=== PATIENT | female | born 1995 | race African-American/Black ===

== ENCOUNTER 2016-06-20 13:57 | Emergency (ER) | payer OTHER ==
[~2016-06-20] VITALS: Ht 160 cm; Wt 77.1 kg
[2016-06-20 14:10] VITALS: BP 138/84
[2016-06-20] MEDS ORDERED: Morphine Sulfate 2mg/ml Inj IVP ONE (14:30)
[2016-06-20 14:55] LABS: BASOPHILS % (AUTO) 0.9 % (0.0-2.0); EOSINOPHILS % (AUTO) 1.4 % (0.0-3.0); LYMPHOCYTES % (AUTO) 14.6 % (20.0-45.0); MEAN CORPUSCULAR HEMOGLOBIN 26.4 PG (27.0-31.0); MEAN CORPUSCULAR HGB CONC 32.7 G/DL (32.0-36.0); MEAN CORPUSCULAR VOLUME 81 FL (80-99); MEAN PLATELET VOLUME 7.7 FL (6.5-10.1); MONOCYTES % (AUTO) 8.4 % (1.0-10.0); NEUTROPHILS % (AUTO) 74.7 % (45.0-75.0); PLATELET COUNT 374 K/UL (150-450); RED BLOOD COUNT 4.79 M/UL (4.20-5.40); RED CELL DISTRIBUTION WIDTH 12.9 % (11.6-14.8); WHITE BLOOD COUNT 10.4 K/UL (4.8-10.8)
--- NOTE | 2016-06-20 14:58 | Emergency Room Report ---
History of Present Illness General Chief Complaint: Abdominal Pain Source: Patient Present Illness HPI The patient is a 20-year-old female presenting for abd pain and vomiting which began 2 weeks prior. The patient states she had a uterine mass removal 7 months prior without any complications. Pain is described as a 10/10 dull ache to the mid lower abd and RLQ. Pain does not radiate. Pain worse with touch and movement. 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 Review of Systems All Other Systems: negative except mentioned in HPI Physical Exam Vital Signs Date Time Temp Pulse Resp B/P Pulse Ox O2 Delivery O2 Flow Rate FiO2 06/20/16 14:10 98.2 96 18 138/84 100 Room Air Sp02 EP Interpretation: reviewed, normal General Appearance: no apparent distress, alert, GCS 15, non-toxic Head: normocephalic, atraumatic Eyes: bilateral eye PERRL, bilateral eye normal inspection Neck: full range of motion, supple/symm/no masses Respiratory: chest non-tender, lungs clear, normal breath sounds, speaking full sentences Cardiovascular #1: regular rate, rhythm, no edema Gastrointestinal: normal bowel sounds, soft, guarding, tenderness - suprapubic and RLQ Genitourinary: normal inspection, no CVA tenderness Musculoskeletal: back normal, gait/station normal, normal range of motion, non- tender Neurologic: alert, oriented x3, responsive, motor strength/tone normal, sensory intact, normal gait, speech normal Psychiatric: judgement/insight normal, memory normal, mood/affect normal, no suicidal/homicidal ideation Skin: normal color, no rash, warm/dry, well hydrated Lymphatic: no adenopathy Medical Decision Making PA Attestation Dr. Wick is my supervising physician. Patient management was discussed with my supervising physician Diagnostic Impression: Primary Impression: Pelvic inflammatory disease (PID) ER Course The patient is a 20-year-old female presenting for abd pain and vomiting Differential diagnoses considered include but not limited to gastroenteritis, pancreatitis, appendicitis, UTI, PID PE: vitals WNL. Afebrile. Abd: soft. Normal BS. There is TTP over suprapubic region and RLQ. + guarding. There is a surgical scar noted periumbilically CT abd/pelvis as well as pelvic US shows free pelvic fluid and R ovarian cyst. CBC unremarkable. No leukocytosis CMP unremarkable. UA: shows elevated WBCs and leukocyte esterase The patient is initially given morphine for pain which has not significantly helped. The patient is then given Toradol with good benefit. The pt is given Rocephin and azithromycin before discharge and will be AL'ed home with pain medication and keflex. ER precautions given. Laboratory Tests Test 06/20/16 14:42 06/20/16 16:07 White Blood Count 10.4 K/UL (4.8-10.8) Red Blood Count 4.79 M/UL (4.20-5.40) Hemoglobin 12.7 G/DL (12.0-16.0) Hematocrit 38.7 % (37.0-47.0) Mean Corpuscular Volume 81 FL (80-99) Mean Corpuscular Hemoglobin 26.4 PG (27.0-31.0) L Mean Corpuscular Hemoglobin Concent 32.7 G/DL (32.0-36.0) Red Cell Distribution Width 12.9 % (11.6-14.8) Platelet Count 374 K/UL (150-450) Mean Platelet Volume 7.7 FL (6.5-10.1) Neutrophils (%) (Auto) 74.7 % (45.0-75.0) Lymphocytes (%) (Auto) 14.6 % (20.0-45.0) L Monocytes (%) (Auto) 8.4 % (1.0-10.0) Eosinophils (%) (Auto) 1.4 % (0.0-3.0) Basophils (%) (Auto) 0.9 % (0.0-2.0) Sodium Level 141 mEQ/L (135-145) Potassium Level 3.2 mEQ/L (3.4-4.9) L Chloride Level 97 mEQ/L (98-107) L Carbon Dioxide Level 28 mEQ/L (20-30) Anion Gap 16 (5-15) H Blood Urea Nitrogen 5 mg/dL (7-23) L Creatinine 0.9 mg/dL (0.5-0.9) Estimate Glomerular Filtration Rate > 60 mL/min (>60) Glucose Level 114 mg/dL (74-106) H Calcium Level 9.5 mg/dL (8.6-10.2) Total Bilirubin 0.5 mg/dL (0.0-1.2) Aspartate Amino Transferase (AST) 14 U/L (5-40) Alanine Aminotransferase (ALT) 10 U/L (3-33) Alkaline Phosphatase 82 U/L (35-104) Total Protein 8.2 g/dL (6.6-8.7) Albumin 4.2 g/dL (3.5-5.2) Globulin 4.0 g/dL Albumin/Globulin Ratio 1.0 (1.0-2.7) Amylase Level 58 U/L (10-110) Lipase 16 U/L (< 60) Urine Color Yellow Urine Appearance Clear Urine pH 6 (4.5-8.0) Urine Specific [place] 1.010 (1.005-1.035) Urine Protein 1+ (NEGATIVE) H Urine Glucose (UA) Negative (NEGATIVE) Urine Ketones 2+ (NEGATIVE) H Urine Occult Blood Negative (NEGATIVE) Urine Nitrite Negative (NEGATIVE) Urine Bilirubin Negative (NEGATIVE) Urine Urobilinogen 1 MG/DL (0.0-1.0) H Urine Leukocyte Esterase 2+ (NEGATIVE) H Urine RBC 0-2 /HPF (0 - 2) Urine WBC 5-10 /HPF (0 - 2) H Urine Squamous Epithelial Cells Few /LPF (NONE/OCC) Urine Bacteria Few /HPF (NONE) Urine Mucus Many /LPF (NONE/OCC) H Urine HCG, Qualitative Negative Lab Results Impression CBC unremarkable. No leukocytosis CMP unremarkable. UA: shows elevated WBCs and leukocyte esterase CT/MRI/US Diagnostic Results CT/MRI/US Diagnostic Results #1: Imaging Test Ordered: CT Abd/Pelvis Impression Few mildly prominent proximal small bowel loops, significance uncertain, could indicate minimal enteritis changes. Free pelvic fluid, most likely physiologic, could indicate recent follicular rupture Prominent adnexal vascularity, indicate ovarian venous insufficiency correlate with symptoms of pelvic congestion syndrome CT/MRI/US Diagnostic Results #2: Imaging Test Ordered: Pelvic US Impression Small amount of free pelvic fluid, presumably physiologic Last Vital Signs Date Time Temp Pulse Resp B/P Pulse Ox O2 Delivery O2 Flow Rate FiO2 06/20/16 14:10 98.2 96 18 138/84 100 Room Air Status: improved Disposition: HOME, SELF-CARE Condition: Improved Scripts Cephalexin* (KEFLEX*) 500 Mg Capsule 500 MG ORAL EVERY 6 HOURS, #28 CAP Prov: NONA ROMO.Noam 06/20/16 Ibuprofen* (MOTRIN*) 600 Mg Tablet 600 MG ORAL Q8H Y for For Pain, #30 TAB 0 Refills Prov: NONA ROMO 06/20/16 NONA ROMO Jun 20, 2016 14:57
[2016-06-20 15:10] LABS: ALANINE AMINOTRANSFERASE 10 U/L (3-33); AMYLASE 58 U/L (10-110); ANION GAP 16 (5-15); ASPARTATE AMINO TRANSFERASE 14 U/L (5-40); CALCIUM 9.5 mg/dL (8.6-10.2); CARBON DIOXIDE 28 mEQ/L (20-30); CHLORIDE 97 mEQ/L (98-107); CREATININE 0.9 mg/dL (0.5-0.9); GLOMERULAR FILTRATION RATE > 60 mL/min (>60); HEMOLYSIS 2; LIPASE 16 U/L (< 60); POTASSIUM 3.2 mEQ/L (3.4-4.9); SODIUM 141 mEQ/L (135-145); TOTAL PROTEIN 8.2 g/dL (6.6-8.7)
[2016-06-20] MEDS ORDERED: Ketorolac 30mg Inj IV ONE (16:15)
[2016-06-20 16:18] LABS: APPEARANCE,URINE CLEAR; KETONES,URINE 2+ (NEGATIVE); LEUKOCYTE ESTERASE ,URINE 2+ (NEGATIVE); NITRITE,URINE NEGATIVE (NEGATIVE); PH,URINE 6 (4.5-8.0); PROTEIN,URINE 1+ (NEGATIVE); UROBILINOGEN,URINE 1 MG/DL (0.0-1.0)
[2016-06-20 16:25] LABS: RBC,URINE 0-2 /HPF (0 - 2); SQUAMOUS EPITHELIAL CELL,UR FEW /LPF (NONE/OCC)
[2016-06-20 16:26] LABS: BACTERIA,URINE FEW /HPF; MUCUS,URINE MANY /LPF (NONE/OCC)
[2016-06-20] MEDS ORDERED: Azithromycin 250mg tab ORAL ONE (17:45)
[2016-06-20] MEDS ORDERED: cefTRIAXone 1 GM in NS 55 ML IVPB ONE (17:45)
[2016-06-20] MEDS ORDERED: IBUPROFEN600 MG ORAL (17:58)
[2016-06-20] MEDS ORDERED: CEPHALEXIN500 MG ORAL (17:58)
[2016-06-20 18:40] VITALS: BP 125/78
[2016-06-20 18:49] VITALS: BP 125/78
--- NOTE | 2016-06-21 10:18 | Diagnostic Imaging Report ---
Clinical Indication: Abdominal pain, vomiting x2 weeks Technique: No oral contrast utilized, per emergency room physician request IV administration nonionic contrast. Venous phase spiral acquisition obtained through the abdomen and pelvis. Multiplanar reconstructions were generated. Total dose length product 683 mGycm. CTDIvol(s) 14 mGy Comparison: None Findings: The appendix is normal. There is no evidence of diverticulosis or diverticulitis. A small amount free fluid is seen in the pelvis. A few proximal small bowel loops are mildly prominent fluid-filled. No preston small bowel distention. No free intraperitoneal air. The distal esophagus, stomach, duodenum are unremarkable. The liver, gallbladder, bile ducts, pancreas, spleen, adrenals, kidneys are unremarkable. No mesenteric or retroperitoneal mass or adenopathy. No pelvic mass or adenopathy. Dominant right ovarian follicle is demonstrated. Prominent veins are seen in the adnexal regions bilaterally, right greater than left. The included lung bases are clear. The bones are unremarkable. Impression: Few mildly prominent proximal small bowel loops, significance uncertain, could indicate minimal enteritis changes. Free pelvic fluid, most likely physiologic, could indicate recent follicular rupture Prominent adnexal vascularity, indicate ovarian venous insufficiency correlate with symptoms of pelvic congestion syndrome This agrees with the preliminary interpretation provided overnight by Dr. Bear The CT scanner at [facility] is accredited by the [employer] and the scans are performed using protocols designed to limit radiation exposure to as low as reasonably achievable to attain images of sufficient resolution adequate for diagnostic evaluation.
--- NOTE | 2016-06-21 12:14 | Diagnostic Imaging Report ---
Indication: Pelvic pain, non patient Technique: Transabdominal and transvaginal images Comparison: None Findings: The uterus measures 8.3 cm length of 4.3 cm AP. Endometrium measures 4 mm thick. No myometrial abnormality. There is a small amount of free pelvic fluid. The right ovary measures 3.3 cm length, demonstrates a 2 cm a dominant follicle. Left ovary measures 2.3 cm length. No adnexal mass demonstrated. Impression: Essentially unremarkable exam. Small amount of free pelvic fluid, presumably physiologic
== END 2016-06-20 18:49 | disposition home or self-care (01) ==
LOC: EMR 15:46
DX: N73.9 Female pelvic inflammatory disease, unspecified (principal); R11.10 Vomiting, unspecified; Z91.040 Latex allergy status
CPT/HCPCS: 36415; 74177; 76830; 76856; 80053; 81003; 81025; 82150; 83690; 85025; 96374; 96375; 99284; J0696; J1885; J2270; J2405; Q9967

== ENCOUNTER 2016-11-11 10:19 | Emergency (ER) | payer OTHER ==
[~2016-11-11] VITALS: Ht 160 cm; Wt 59.0 kg
[~2016-11-11 10:19] MED LIST: CEPHALEXIN500 MG ORAL; IBUPROFEN600 MG ORAL
[2016-11-11 10:41] VITALS: BP 121/73
[2016-11-11 10:44] LABS: APPEARANCE,URINE CLOUDY; KETONES,URINE NEGATIVE (NEGATIVE); LEUKOCYTE ESTERASE ,URINE 3+ (NEGATIVE); NITRITE,URINE NEGATIVE (NEGATIVE); PH,URINE 6.5 (4.5-8.0); PROTEIN,URINE NEGATIVE (NEGATIVE); UROBILINOGEN,URINE NORMAL MG/DL (0.0-1.0)
[2016-11-11 10:55] LABS: AMORPHOUS SEDIMENT,UR OCCASIONAL /LPF; BACTERIA,URINE FEW /HPF; RBC,URINE 0-2 /HPF (0 - 2); SQUAMOUS EPITHELIAL CELL,UR MODERATE /LPF (NONE/OCC)
[2016-11-11] MEDS ORDERED: PHENAZOPYRIDIN100 MG ORAL (10:59)
[2016-11-11] MEDS ORDERED: NITROFURANTOIN100 M2 ORAL (10:59)
[2016-11-11 11:09] VITALS: BP 121/73
--- NOTE | 2016-11-11 11:35 | Emergency Room Report ---
History of Present Illness General Chief Complaint: Female Urogenital Problems Source: Patient Present Illness HPI Patient presents with son for conjunctival irritation However the patient herself complains of bladder discomfort Urinary frequency Patient also felt that she had some mild discomfort in the left flank area that was intermittent over the past 2 days Denies any fevers denies any chest pain or shortness of breath denies any fall or trauma Was concerned of a possible bladder infection Allergies: Coded Allergies: LATEX (Verified Allergy, Unknown, 06/20/16) Patient History Past Medical History: see triage record Pertinent Family History: none Reviewed Nursing Documentation: PMH: Agreed, PSxH: Agreed Nursing Documentation-PMH 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 Review of Systems All Other Systems: negative except mentioned in HPI Physical Exam Vital Signs Date Time Temp Pulse Resp B/P Pulse Ox O2 Delivery O2 Flow Rate FiO2 11/11/16 10:24 98.2 85 20 121/73 96 Room Air Sp02 EP Interpretation: reviewed, normal General Appearance: well appearing, no apparent distress Head: normocephalic, atraumatic Eyes: bilateral eye EOMI, bilateral eye PERRL ENT: hearing grossly normal, normal pharynx, TMs + canals normal, uvula midline Neck: full range of motion, supple, no meningismus, no bony tend Respiratory: lungs clear, normal breath sounds, no rhonchi, no respiratory distress, no retraction, no accessory muscle use Cardiovascular #1: normal peripheral pulses, regular rate, rhythm, no edema, no gallop, no JVD, no murmur Gastrointestinal: normal bowel sounds, non tender, soft, no mass, no organomegaly, non-distended, no guarding, no hernia, no pulsatile mass, no rebound Genitourinary: no CVA tenderness Musculoskeletal: normal inspection Neurologic: oriented x3, responsive, insecticide mixer III-XII nml as tested, motor strength/ tone normal, sensory intact Psychiatric: mood/affect normal Skin: normal color, no rash, warm/dry, palpation normal Lymphatic: normal inspection, no adenopathy Medical Decision Making Diagnostic Impression: Primary Impression: uti ER Course Patient has no reveal any clinical symptoms of pyelonephritis however early pyelonephritis cannot be ruled out there is evidence of UTI and the patient was placed on antibiotics and will have close outpatient followup , Labs Test 11/11/16 10:29 Urine Color Yellow Urine Appearance Cloudy Urine pH 6.5 (4.5-8.0) Urine Specific [place] 1.015 (1.005-1.035) Urine Protein Negative (NEGATIVE) Urine Glucose (UA) Negative (NEGATIVE) Urine Ketones Negative (NEGATIVE) Urine Occult Blood Negative (NEGATIVE) Urine Nitrite Negative (NEGATIVE) Urine Bilirubin Negative (NEGATIVE) Urine Urobilinogen Normal MG/DL (0.0-1.0) Urine Leukocyte Esterase 3+ (NEGATIVE) Urine RBC 0-2 /HPF (0 - 2) Urine WBC 5-10 /HPF (0 - 2) Urine Squamous Epithelial Cells Moderate /LPF (NONE/OCC) Urine Amorphous Sediment Occasional /LPF (NONE) Urine Bacteria Few /HPF (NONE) Urine HCG, Qualitative Negative Last Vital Signs Date Time Temp Pulse Resp B/P Pulse Ox O2 Delivery O2 Flow Rate FiO2 11/11/16 10:41 97.8 20 121/73 96 Room Air 11/11/16 10:24 85 Status: unchanged Disposition: HOME, SELF-CARE Condition: Stable Scripts Phenazopyridine Hcl* (PYRIDIUM*) 100 Mg Tablet 100 MG ORAL BID, #8 TAB Prov: SUSAN BISHOP D.O. 11/11/16 Nitrofurantoin Monohyd/M-Cryst* (MACROBID 100 MG*) 100 Mg Capsule 100 MG ORAL EVERY 12 HOURS for 7 Days, CAP Prov: SUSAN BISHOP D.O. 11/11/16 Referrals: NOT CHOSEN [facility]/,REFERRING (PCP) Patient Instructions: Urinary Tract Infection Additional Instructions: Patient is provided with the discharge instructions notified to follow up with primary doctor in the next 2-3 days otherwise return to the er with any worsening symptoms. Please note that this report is being documented using [employer] technology. This can lead to erroneous entry secondary to incorrect interpretation by the dictating instrument. SUSAN BISHOP D.O. Nov 11, 2016 11:35
== END 2016-11-11 11:09 | disposition home or self-care (01) ==
LOC: EMR 11:00
DX: N39.0 Urinary tract infection, site not specified (principal); Z91.040 Latex allergy status; H57.8 Other specified disorders of eye and adnexa
CPT/HCPCS: 81003; 81025; 99284